=== PATIENT | male | born 1990 ===

== ENCOUNTER 2020-11-17 16:51 | Emergency (ER) | payer MEDICAID ==
[~2020-11-17] VITALS: Ht 172.7 cm; Wt 66.2 kg
[2020-11-17] MEDS ORDERED: KETOROLAC TROMETH 60MG/2ML VIAL IM ONE (20:15)
[2020-11-17] MEDS ORDERED: methylPREDNISolone SOD SUCC 125 MG/2 ML VL IM ONE (20:15)
[2020-11-17 22:01] VITALS: BP 115/66
== END 2020-11-17 21:02 | disposition home or self-care (01) ==
LOC: ER 16:51
DX: M54.41 Lumbago with sciatica, right side (principal); M54.16 Radiculopathy, lumbar region; M79.604 Pain in right leg
CPT/HCPCS: 96372; 99284; J1885; J2930